=== PATIENT | female | born 1995 | race Caucasian/White ===

== ENCOUNTER → 2018-01-08 13:49 | Outpatient (CLI) | payer BC, SELFPAY ==
[2018-01-08 17:18] LABS: Hematocrit 39.7 % (37-47); Hemoglobin 13.3 g/dl (12.0-15.0); Mean Corp Hgb Conc 33.5 g/gl (32-36); Mean Corpuscular Hgb 31.3 pg (27.0-32.0); Mean Corpuscular Volume 93.4 fL (81-99); Mean Platelet Vol. 10.6 fl (6.2-12.0); Platelet Count 249 K/mm3 (150-450); RBC Distribution Width CV 13.1 % (11.6-14.6); RBC Distribution Width SD 43.4 fl (35.1-43.9); Red Blood Count 4.25 M/mm3 (4.2-5.4)
[2018-01-08 17:21] LABS: Scan Indicated on CBC? Y/N NO
[2018-01-08 17:36] LABS: Glucose Challenge Gest 1H 50g 88 mg/dL (70-140)
== END ==
PROVIDERS: Visit Provider Obstetrics & Gynecology
DX: Z34.83 Encounter for supervision of other normal pregnancy, third trimester (principal)
CPT/HCPCS: 82950; 85027

== ENCOUNTER → 2018-03-02 17:47 | Outpatient (CLI) | payer BC, SELFPAY ==
[2018-03-02 21:36] LABS: Group B Strep DNA By PCR Negative (Negative); Internal Control PASS; Probe Check PASS; Specimen Processing Control PASS
== END ==
PROVIDERS: Visit Provider Obstetrics & Gynecology
DX: Z36.85 Encounter for antenatal screening for Streptococcus B (principal)
CPT/HCPCS: 87081; 87653

== ENCOUNTER 2018-03-09 11:30 | Outpatient (CLI) | payer BC, SELFPAY ==
[2018-03-09 11:47] VITALS: BMI 32.6
--- NOTE | 2018-03-10 07:46 | OB.TRI.NOTE ---
History of Present Illness Date of Service: 03/09/18 Was patient seen by the physician?: Yes Reason For Visit: CONTRACTIONS Date of Service: 03/09/18 Final QUENTIN: 03/29/18 Final QUENTIN Source: US <20 weeks Gestational age: 37 Weeks and 2 Days Home Medications Medication Instructions Recorded RX: Vits [Prenatabs FA 1 tablet PO DAILY 11/06/15 ] Allergies No Known Allergies Allergy (Verified 03/09/18 11:59) Physical Exam General: Alert, Oriented x3, Cooperative, No apparent distress Cardiovascular: Regular rate, Regular Rhythm Lungs: Clear to auscultation, Normal air movement Abdomen: Soft, Non Tender, Non-Distended, Gravid, Appropriate for Gestational Age Extremities:: No edema Estimated gestational size: Appropriate for gestational size Presentation: Cephalic Cervix Dilation (cm): 3 Station: -2 Effacement (%): 50 NST - FHR Rate Baby A Baseline: 135 Variability:: Moderate Accelerations:: 15 x 15 Decelerations:: None NST Reactive:: Yes, Appropriate for gestational age FHR Category:: Category I Uterine Activity:: irregular mild Impression/Plan No significant change in cervical exam since last office visit. No change in cervix during time observed. No signs of SROM. Likely latent labor. Reassuring FHR tracing.
== END 2018-03-09 13:05 | disposition home health service (06) ==
LOC: WPOUT 11:37 → WP 15:22
PROVIDERS: Visit Provider Obstetrics & Gynecology
DX: O62.8 Other abnormalities of forces of labor (principal); Z3A.37 37 weeks gestation of pregnancy
CPT/HCPCS: 59025; 59050; 99218; G0378

== ENCOUNTER 2018-03-10 21:03 | Inpatient (IN) | payer BC, SELFPAY ==
[2018-03-10 21:34] VITALS: BMI 32.8
[2018-03-10 22:00] LABS: Hematocrit 37.8 % (37-47); Hemoglobin 12.6 g/dl (12.0-15.0); Mean Corp Hgb Conc 33.3 g/gl (32-36); Mean Corpuscular Hgb 29.3 pg (27.0-32.0); Mean Corpuscular Volume 87.9 fL (81-99); Mean Platelet Vol. 11.1 fl (6.2-12.0); Platelet Count 188 K/mm3 (150-450); RBC Distribution Width CV 13.3 % (11.6-14.6); RBC Distribution Width SD 42.3 fl (35.1-43.9); White Blood Count 16.7 K/mm3 (4.4-11.0)
[2018-03-10 22:01] LABS: Scan Indicated on CBC? Y/N NO
[2018-03-10] MEDS: Oxytocin 30 units/NS 500 ml 30 UNITS/500 ML IV.SOLN 334 UNITS IV (22:05)
[2018-03-10] MEDS: Oxytocin 30 units/NS 500 ml 30 UNITS/500 ML IV.SOLN 167 UNITS IV (22:35)
--- NOTE | 2018-03-10 22:37 | OP.PCM_ITS ---
- Problem List (1) Breech delivery Status: Acute Qualifiers: Fetus number: single or unspecified fetus Qualified Code(s): O32.1XX0 - Maternal care for breech presentation, not applicable or unspecified Vaginal Delivery Maternal Presentation: Active Labor 37w2 ega admitted in advanced active labor. Amniotic Membrane Rupture Type: Spontaneous Rupture of Membrane time: 2200 Amniotic Fluid Description: Clear Final QUENTIN: 03/29/18 Final QUENTIN Source: US <20 weeks Gestational age: 37 Weeks and 2 Days [place] doctor who attended delivery (if requested by OB): Jenifer Lawrence Date of Procedure: 03/10/18 Pre-Operative Diagnosis: Labor Post-Operative Diagnosis: Same Surgery/ Procedure Performed: Spontaneous Vaginal Delivery Type of Anesthesia: None Description of Procedure: Candy presented in advanced active labor at 6-7 cm dilated. Shortly after admission she had spontaneous rupture of membranes and then progressed rapidly to fully dilated. She was examined and found at that time to have a complete breech presentation. She was taken to the OR for delivery. With one contraction and just a few pushing efforts the breech was delivered. After the legs were delivered the posterior arm followed by the anterior arm were delivered. With gentle traction the head was delivered. The mouth was suctioned. There was an active cry within one minute of delivery. Delayed cord clamping was employed. The cord was then clamped and cut. Pediatrics was present at delivery. The placenta was then delivered spontaneously intact with a centrally located 3VC. Inspection revealed an intact cervix and upper vagina. A first degree posterior vaginal/perineal tear was repaired with 2-0 vicryl with 2% lidocaine for anesthesia. The uterus contracted well. Presentation: Complete Breech Placental Delivery Description: Spontaneous Placenta Disposition: [facility] Percentage of Placenta Abruption: 0 Cord Vessel Description: 3 Vessels Nuchal Cord Compression: Without compression Cord Entanglement: None Estimated Blood Loss: 200cc Infant A gender: Male (1 minute): 8 (5 minute): 9 Episiotomy Description: None Laceration: Midline, Perineal Extension/lac, Vaginal Extension/lac, 1st degree Medications given after delivery: IV Pitocin Complications: None
--- NOTE | 2018-03-10 22:41 | DCINST_ITS ---
Discharge Diet: No Restrictions Discharge Activity: Return to Normal Activity, May Drive, May Shower Return to work on:: 05/10/18 May resume sexual activity in: 4-6 weeks Call your doctor if your incision/area has: Sudden Increased Bleeding, Increased Pain/ Swelling, Increased Redness, Foul Smelling Discharge Call your doctor if you observe: Fever of 101 or Higher, Inability to urinate, Inability to have a bowel movement, Using more than one pad per hour, Shortness of breath, Chest pain, Calf discomfort, Uncontrolled pain Cleanse incision/area with: Soap & Water Additional Instructions: If you experience any of the following, contact your healthcare provider. * Bleeding that soaks a pad every hour for 2 hours * Fever 100.4 or higher * Unrelieved incision or abdominal pain * Swelling, redness, discharge or bleeding from your incision or episiotomy site * Your incision begins to separate * Problems urinating (including inability to urinate or burning while urinating) . * Visual changes * Severe headache * Flu-like symptoms * Pain or redness in one of both of your breasts * Pain, warmth, tenderness or swelling in your legs, especially the calf area * Frequent nausea and vomiting * Symptoms of depression or anxiety If you experience any of the following, call 911 or go to the nearest Emergency Room. * Chest pain * Problems breathing * Seizure activity * Partial or complete paralysis of a body part, slurred speech, weakness or drooping of the face, or a sudden inability to walk or hold your balance Allergies/Adverse Reactions: Allergies No Known Allergies Allergy (Verified 03/09/18 11:59) Medications to take at Discharge Vits [Prenatabs FA ] 1 tablet PO DAILY 11/06/15 Ibuprofen [Motrin] 800 mg PO TID PRN PRN #30 tab 03/10/18 The following prescriptions were given: Ibuprofen [Motrin] 800 mg PO TID PRN PRN #30 tab PRN Reason: pain or cramping Please Follow Up With: Donnie Delgado MD When: 6 weeks Primary Care Physician: Care Physician,No Primary [Primary Care Provider] - Proposed Discharge Date: 03/12/18
[2018-03-11 00:15] VITALS: BP 118/80; PULSE 68; RESP 17; TEMP 36.6
[2018-03-11] MEDS: oxyCODONE 5 MG Tablet PO (01:18)
[2018-03-11 04:15] VITALS: BP 114/75; PULSE 81; RESP 15; TEMP 37.1
[2018-03-11 05:20] LABS: Hematocrit 35.7 % (37-47); Hemoglobin 11.9 g/dl (12.0-15.0); Mean Corp Hgb Conc 33.3 g/gl (32-36); Mean Corpuscular Hgb 29.5 pg (27.0-32.0); Mean Corpuscular Volume 88.4 fL (81-99); Mean Platelet Vol. 10.7 fl (6.2-12.0); Platelet Count 179 K/mm3 (150-450); RBC Distribution Width CV 13.3 % (11.6-14.6); RBC Distribution Width SD 42.7 fl (35.1-43.9); Red Blood Count 4.04 M/mm3 (4.2-5.4); White Blood Count 23.2 K/mm3 (4.4-11.0)
[2018-03-11 05:31] LABS: Scan Indicated on CBC? Y/N NO
--- NOTE | 2018-03-11 08:08 | PCM.PN.OB ---
Patient Problems: Active and Suspected Problems Breech delivery (Acute) Subjective: Doing well. Some vaginal soreness and cramping. Bleeding appropriate. Breast feeding. Objective: Afeb VSS, Hgb stable - Physical Exam General: Alert, Oriented x3, Cooperative, No apparent distress Lungs: Clear to auscultation, Normal air movement Cardiovascular: Regular rate, Regular Rhythm Abdomen: Soft, Non Tender, Non-Distended, - - Fundus firm nontender Extremities: No edema Skin: No rashes Neurological: Neuro grossly intact Psych/Mental Status: Normal Affect Comment: Lochia light Vital Signs Temp Pulse Resp BP 98.7 F 81 15 114/75 03/11/18 04:15 03/11/18 04:15 03/11/18 04:15 03/11/18 04:15 Weight: 185 lb Body Mass Index (BMI) 32.8 Laboratory Tests Past 24 Hrs 03/10/18 03/10/18 03/11/18 21:30 21:30 05:10 WBC 16.7 H 23.2 H RBC 4.30 4.04 L Hgb 12.6 11.9 L Hct 37.8 35.7 L MCV 87.9 88.4 MCH 29.3 29.5 MCHC 33.3 33.3 RDW 13.3 13.3 RDW Differential 42.3 42.7 Plt Count 188 179 MPV 11.1 10.7 Blood Type B POSITIVE Antibody Screen NEGATIVE Medical Necessity - Tobacco Use Smoking Status: Never smoker Assessment/Plan Active and Suspected Problems Breech delivery (Acute) Doing well on PP day#1. Continue routine PP care.
[2018-03-11 08:37] VITALS: BP 115/72; PULSE 81; RESP 18; TEMP 36.8
[2018-03-11 11:42] VITALS: BP 107/72; PULSE 82; RESP 18; TEMP 36.5
[2018-03-11 16:00] VITALS: BP 123/80; PULSE 91; RESP 18; TEMP 36.9
[2018-03-11 20:53] VITALS: BP 116/83; PULSE 86; RESP 16; TEMP 36.5; O2SAT 97
[2018-03-12 02:00] VITALS: BP 106/68; PULSE 82; RESP 16; TEMP 36.4; O2SAT 98
--- NOTE | 2018-03-12 08:23 | PCM.PN.OB ---
Patient Problems: Active and Suspected Problems Breech delivery (Acute) Subjective: No complaints. Breast feeding. Objective: Afeb VSS - Physical Exam General: Alert, Oriented x3, Cooperative, No apparent distress Lungs: Clear to auscultation, Normal air movement Cardiovascular: Regular rate, Regular Rhythm Abdomen: Soft, Non Tender, Non-Distended, - - Fundus firm nontender Extremities: No edema Skin: No rashes Neurological: Neuro grossly intact Psych/Mental Status: Normal Affect Comment: Lochia light Vital Signs Temp Pulse Resp BP Pulse Ox 97.5 F L 82 16 106/68 98 03/12/18 02:00 03/12/18 02:00 03/12/18 02:00 03/12/18 02:00 03/12/18 02:00 Oxygen Delivery Method Room Air Weight: 185 lb Body Mass Index (BMI) 32.8 Medical Necessity - Tobacco Use Smoking Status: Never smoker Assessment/Plan Active and Suspected Problems Breech delivery (Acute) Doing well on PP day#2. Cleared for discharge home today. Home going instructions and warnings given.
--- NOTE | 2018-03-12 08:24 | PCM.DC.SUM ---
Discharge Date and Diagnosis - Problem List Patient Problems: Active and Suspected Problems Breech delivery (Acute) Date of Admission: 03/10/18 Date of Discharge: 03/12/18 - Primary Discharge Diagnosis Active and Suspected Problems Breech delivery (Acute) Hospital Course and Treatment Consultations 03/10/18 21:32 Consult: Anesthesia Routine Comment: Reason For Exam: Operations: None Procedures: - - Spontaneous breech delivery Summary of Care Provided: The patient is a 22 year old F [presented in active labor. Progressed rapidly to FD then found to have comlete breech presentation. Delivered from breech presentation vaginally without complication. Post course unremarkable. Discharged home on PP day#2.] Discharge Diet: No Restrictions Discharge Activity: Return to Normal Activity, May Drive, May Shower Return to work on:: 05/10/18 May resume sexual activity in: 4-6 weeks Call your doctor if your incision/area has: Sudden Increased Bleeding, Increased Pain/ Swelling, Increased Redness, Foul Smelling Discharge Call your doctor if you observe: Fever of 101 or Higher, Inability to urinate, Inability to have a bowel movement, Using more than one pad per hour, Shortness of breath, Chest pain, Calf discomfort, Uncontrolled pain Cleanse incision/area with: Soap & Water Home Medications: Medications to take at Discharge Vits [Prenatabs FA ] 1 tablet PO DAILY 11/06/15 Ibuprofen [Motrin] 800 mg PO TID PRN PRN #30 tab 03/10/18 Following Prescrptions Were Given to Patient: Ibuprofen [Motrin] 800 mg PO TID PRN PRN #30 tab PRN Reason: pain or cramping Primary Care Physician: Care Physician,No Primary [Primary Care Provider] - Please Follow Up With: Donnie Delgado MD When: 6 weeks Disposition: Home Minutes spent on discharge:: 15 Patient Condition:: Good Medical Necessity - Tobacco Use Smoking Status: Never smoker Meaningful Use Info Meaningful Use Diagnoses (Choose all that apply): None applicable
[2018-03-12 08:27] VITALS: BP 107/77; PULSE 97; RESP 18; TEMP 37.2; O2SAT 98
[2018-03-12] MEDS: Prenatal Vits Tablet 1 TABLET PO (08:44)
[2018-03-12 08:50] VITALS: BP 102/69; PULSE 77; RESP 18; TEMP 36.7; O2SAT 97
[2018-03-12 13:57] VITALS: BP 107/77; PULSE 97; RESP 18; TEMP 37.2; O2SAT 98
== END 2018-03-12 15:30 | disposition home or self-care (01) | DRG 775 ==
PROVIDERS: Admitting Provider Obstetrics & Gynecology; Visit Provider Obstetrics & Gynecology
DX: O32.1XX0 Maternal care for breech presentation, not applicable or unspecified (principal); Z37.0 Single live birth; Z3A.37 37 weeks gestation of pregnancy; O70.0 First degree perineal laceration during delivery
CPT/HCPCS: 59025; 59050; 85027; 86850; 86900; 99218; G0378

== ENCOUNTER → 2018-10-01 15:45 | Outpatient (CLI) | payer BC, SELFPAY ==
[2018-10-08 10:38] LABS: HPV Reflexed? NOT INDICATED
== END ==
PROVIDERS: Visit Provider Obstetrics & Gynecology
DX: Z12.4 Encounter for screening for malignant neoplasm of cervix (principal)
CPT/HCPCS: 88175; G0145

== ENCOUNTER → 2021-08-06 | Outpatient (CLI) | payer BC, SELFPAY | END | disposition home or self-care (01) | PROVIDERS: Referring Provider Physician Assistant Surgical; Visit Provider Physician Assistant Surgical | DX: R05 Cough (principal) | CPT/HCPCS: 87635; U0005; U0003 ==

== ENCOUNTER → 2021-08-15 | Outpatient (CLI) | payer BC, SELFPAY | END | disposition home or self-care (01) | LOC: LABSPEC 16:31 | PROVIDERS: Visit Provider Physician Assistant | DX: Z11.52 Encounter for screening for COVID-19 (principal) | CPT/HCPCS: 87635; U0005; U0003 ==